=== PATIENT | male | born 1935 | race Caucasian/White ===

== ENCOUNTER 2019-07-17 08:18 | Outpatient (CLI) | payer OTHER ==
[~2019-07-17 08:18] MED LIST: AVAPRO150 MG PO; CIPRO100 MG PO; JANUVIA50 MG PO; NEURIN; PERCOCET 10-3251 TAB PO; VIT B12; VITACEL TABLET1 TAB PO
== END 2019-07-17 08:26 | disposition home or self-care (01) ==
LOC: RX STUDY 08:18
DX: R13.12 Dysphagia, oropharyngeal phase (principal)

== ENCOUNTER 2020-10-09 10:48 | Outpatient (CLI) | payer OTHER | END 2020-10-09 10:58 | disposition home or self-care (01) | LOC: NUCLEAR 10:48 | PROVIDERS: ATTEND General Practice | DX: I10 Essential (primary) hypertension (principal); E11.65 Type 2 diabetes mellitus with hyperglycemia; E78.2 Mixed hyperlipidemia; I31.9 Disease of pericardium, unspecified ==